=== PATIENT | male | born 1970 | race Caucasian/White ===

== ENCOUNTER 2020-07-12 16:06 | Emergency (ER) | payer OTHER ==
[~2020-07-12] VITALS: Ht 170.2 cm; Wt 79.4 kg
[2020-07-12] MEDS ORDERED: MORPHINE SULFATE INJ 4 MG/ML DISP.SYRIN ONE (16:17)
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
[2020-07-12] MEDS ORDERED: MORPHINE SULFATE INJ 2 MG/ML DISP.SYRIN IM ONE (16:30)
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
[2020-07-12] MEDS ORDERED: HYDROMORPHONE 1 MG/1 ML DISP.SYRIN ONE (17:07)
[2020-07-12] MEDS ORDERED: ONDANSETRON HCL/PF 4 MG/2 ML VIAL ONE (17:07)
[2020-07-12 17:17] LABS: BASOPHILS % (AUTO) 0.5 % (0.0-2.0); HEMATOCRIT 48 % (39-51); LYMPHOCYTES # (AUTO) 1.1 /CMM (0.8-4.8); LYMPHOCYTES % (AUTO) 16.2 % (20.0-44.0); MEAN CORPUSCULAR HGB CONC 33 g/dl (31.0-36.0); MEAN CORPUSCULAR VOLUME 92 fL (80-96); MONOCYTES # (AUTO) 0.5 /CMM (0.1-1.30); NEUTROPHILS # (AUTO) 4.8 /CMM (1.8-8.9); NEUTROPHILS % (AUTO) 74.3 % (43.0-81.0); PLATELET COUNT (AUTO) 131 /CMM (150-450); RED BLOOD CELL COUNT(AUTO) 5.25 MIL/uL (4.5-6.0); WHITE BLOOD COUNT (AUTO) 6.5 K/uL (4.3-11.0)
--- NOTE | 2020-07-12 17:19 | NUR ---
CALLED [facility]. ETA [phone]. TRIP [id number].
[2020-07-12] MEDS ORDERED: TDAP [DIPH/PERTUSSIS/TET] 0.5 ML VIAL IM ONE ×2 (17:21→17:30)
[2020-07-12 17:24] LABS: CREATININE 1.1 mg/dL (0.6-1.3); POTASSIUM 3.7 mmol/L (3.5-5.1)
[2020-07-12] MEDS ORDERED: HYDROMORPHONE 1 MG/1 ML DISP.SYRIN IV ONE (17:30)
[2020-07-12] MEDS ORDERED: CEFAZOLIN 2 GM in IV D5W 100 ML IV ONE (17:30)
[2020-07-12] MEDS ORDERED: ONDANSETRON HCL/PF - ER 4 MG/2 ML VIAL IV ONE (17:30)
--- NOTE | 2020-07-12 17:45 | NUR ---
[facility] AT BEDSIDE TALKING TO PT
--- NOTE | 2020-07-12 18:06 | NUR ---
Patient discharged to home in stable condition. Written and verbal after care instructions given. Patient verbalizes understanding of instruction.IV removed. Catheter intact and site benign. Pressure and 4x4 applied to site. No bleeding noted. Pt ambulatory with a steady gait
--- NOTE | 2020-07-12 18:06 | NUR ---
PT AMBULATORY ON STEADY GAIT.
[2020-07-12 18:08] VITALS: BP 150/91
== END 2020-07-12 18:08 | disposition home or self-care (01) ==
LOC: ER 16:13
DX: S62.122 Displaced fracture of lunate [semilunar], left wrist (principal); S62.18 Fracture of trapezoid [smaller multangular]; S62.172B Displaced fracture of trapezium [larger multangular], left wrist, initial encounter for open fracture; S62.002B Unspecified fracture of navicular [scaphoid] bone of left wrist, initial encounter for open fracture; W32.0XXA Accidental handgun discharge, initial encounter; Y93.89 Activity, other specified; Y92.89 Other specified places as the place of occurrence of the external cause; Z18.89 Other specified retained foreign body fragments; Z20.822 Contact with and (suspected) exposure to COVID-19
CPT/HCPCS: 29125; 36415; 73130; 80048; 85025; 85610; 85730; 87426; 90471; 90715; 96365; 96372; 96375; 99291; A6403; C9803; J0690; J1170; J2270; J2405; J7060